=== PATIENT | female | born 1935 | race Caucasian/White ===

== ENCOUNTER 2017-09-03 15:15 | Emergency (ER) | payer MEDICARE ==
[~2017-09-03] VITALS: Ht 157.5 cm; Wt 88.5 kg
[~2017-09-03 15:15] MED LIST: ACETAMINOPHEN; ASPIR 8181 MG PO; ASPIRIN325 PO; BACTRIM DS TAB1 EACH PO; CARDURA XL4 MG PO; CIPROFLOXACIN500 M1 PO; DEMEROL50 MG PO; DITROPAN XL10 M1 PO; EZETIMIBE PO; FLAGYL ER750 MG PO; FLAGYL500 MG PO; FLOMAX PO; GLUCOPHAGE500 MG PO; LISINOPRIL; LISINOPRIL-HCT1 EAC1 PO; LISINOPRIL20 MG PO; NORCO 5-325 TA1 EACH PO; OXYBUTYNIN CHLO10 MG PO; PREDNISONE 10 M10 MG; PRINZIDE 20-251 EACH PO; SKELAXIN 800 M800 M1 PO; TAMSULOSIN HCL0.4 MG PO; ULTRAM 50MG TAB50 MG PO; VITAMIN D250000 UNIT PO; ZESTORETIC 20-1 EAC3 PO; ZETIA10 MG PO
[2017-09-03 17:23] VITALS: BP 178/76
== END 2017-09-03 17:23 | disposition home or self-care (01) ==
LOC: M.ERS 15:15
DX: M54.42 Lumbago with sciatica, left side (principal); M25.552 Pain in left hip; E11.9 Type 2 diabetes mellitus without complications; I10 Essential (primary) hypertension; Z90.711 Acquired absence of uterus with remaining cervical stump; Z88.0 Allergy status to penicillin

== ENCOUNTER → 2017-09-21 | Outpatient (CLI) | payer MEDICARE | LOC: M.RAD 09:22 | DX: M17.12 Unilateral primary osteoarthritis, left knee (principal) ==

== ENCOUNTER 2018-05-18 12:41 | Inpatient (IN) | payer MEDICARE ==
[~2018-05-18] VITALS: Ht 157.5 cm; Wt 76.2 kg
[2018-05-18 12:50] VITALS: BP 220/86
[2018-05-18] MEDS ORDERED: FOR ANXIETY (12:59)
[2018-05-18 13:16] LABS: ABSOLUTE EOSINOPHILS 0.2 thou/uL (0.0-0.7); ABSOLUTE LYMPHOCYTES 1.5 thou/uL (0.8-5.3); ABSOLUTE MONOCYTES 0.4 thou/uL (0.0-1.2); BASOPHILS 0.4 %; EOSINOPHILS 4.2 %; HEMATOCRIT 35.4 % (37.0-47.0); HEMOGLOBIN 11.6 gm/dL (12.0-15.0); LYMPHOCYTES 28.1 %; MCH 29.3 pg (26.0-34.0); MCHC 32.9 g/dL (28.0-37.0); MCV 89.1 fL (80.0-100.0); MONOCYTES 8.3 %; MPV 7.4 fl. (7.2-11.1); NUCLEATED RBCS 0 /100WBC; PLATELET COUNT* 244 thou/uL (150-400); RBC 3.97 mil/uL (4.20-5.00); RDW-CV 15.4 % (10.5-14.5); WBC 5.2 thou/uL (4.0-11.0)
[2018-05-18 13:28] LABS: ANION GAP 8 mmol/L (7-16); BUN 9 mg/dL (7-18); CALCIUM 9.1 mg/dL (8.5-10.1); CHLORIDE 98 mmol/L (98-107); CO2 30 mmol/L (21-32); CREATININE 0.9 mg/dL (0.6-1.3); GLUCOSE 163 mg/dL (70-99); POTASSIUM 3.5 mmol/L (3.5-5.1); SODIUM 136 mmol/L (136-145)
[2018-05-18 13:35] LABS: ALBUMIN 3.8 g/dL (3.4-5.0); ALKALINE PHOSPHATASE 96 U/L (46-116); SGOT 45 U/L (15-37); SGPT 43 U/L (30-65); TOTAL BILIRUBIN 0.6 mg/dL (<0.1-1.0); TOTAL PROTEIN 7.7 g/dL (6.4-8.2); TROPONIN-I LEVEL <0.06 ng/mL (<0.06)
[2018-05-18 14:50] VITALS: BP 181/69
[2018-05-18 15:09] LABS: INFLUENZA A ANTIGEN None Detected (None Detect); INFLUENZA B ANTIGEN None Detected (None Detect)
[2018-05-18 16:33] VITALS: BP 197/92
[2018-05-18] MEDS ORDERED: ZOLOFT25 MG PO (17:27)
[2018-05-18] MEDS ORDERED: NEURONTIN 300300 M1 PO (17:28)
--- NOTE | 2018-05-18 18:48 | NUR ---
PATIENT ARRIVED ON UNIT FROM ER AT 1600. COMPLETED ADMISSION ASSESSMENT AND HISTORY. EDUCATED PATIENT TO ROOM, CALL LIGHT, AND FALL RISKS. PATIENT VERBALIZED UNDERSTANDING AND SIGNED FALL RISK CONTRACT. IV CLEAN, HUNG FLUIDS. PATIENT DENIED PAIN. TOLERATED DIET, NO NAUSEA AND VOMITING. VITAL SIGNS STABLE. BP HIGH, GAVE HYDRALAZINE, BP CAME DOWN. 2L O2. TOLERATED BREATHING TREATMENTS. COMPLETED HOURLY ROUNDING. CALL LIGHT WITHIN REACH. WILL CONTINUE TO MONITOR.
[2018-05-18 20:00] VITALS: BP 196/52
[2018-05-19] VITALS (48 sets, daily range): BP systolic 100–227; BP diastolic 52–122
--- NOTE | 2018-05-19 02:49 | NUR ---
patient arrived to unit at 0220. pt able to walk to bed. blood pressure 190/77. pt extremely anxious and unsure why she has to be in icu. stated "my heart is very healthy its fine" pt given education and explained that we could keep a closer eye on her vital signs and monitor blood pressure. pt denies pain, n/v. tachycardic on monitor. started cardene gtt at initial dose will titrate down. pt refused to have blood pressure taken on upper arm bilaterally. stated pain is intolerable when it presses her arm. pt currently in bed with call light in place. bed to lowest position. no voiced concerns at this time. pt remains tele.
--- NOTE | 2018-05-19 03:11 | NUR ---
Alert and oriented x 4. She was up to the bathroom with stand by assist and had O2 at 2L n/c with long tubing. Her lungs did sound coarse and wheezy, she is recieving breathing treatments every 4 hours while awake. Her blood pressure has been elevated all of this shift. She also was concerned about her home meds. I did explain all of these issues to Dr Mota and he ordered for her to start Nicardipine drip and move to telemetry unit. Orders reported to Ezekiel the security guard supervisor and he said the patient would be moved to room 3 in ICU. Report given to Dannielle TEE. Patient was transfered by bed to ICU.
--- NOTE | 2018-05-19 03:21 | NUR ---
STOPPED JASS GTT @ 0321 BP 136/57 MAP 74
[2018-05-19 05:14] LABS: HEMATOCRIT 32.8 % (37.0-47.0); MCH 30.1 pg (26.0-34.0); MCHC 33.6 g/dL (28.0-37.0); MCV 89.6 fL (80.0-100.0); MPV 7.8 fl. (7.2-11.1); NUCLEATED RBCS 0 /100WBC; PLATELET COUNT* 223 thou/uL (150-400); RBC 3.67 mil/uL (4.20-5.00); RDW-CV 15.4 % (10.5-14.5); WBC 5.8 thou/uL (4.0-11.0)
[2018-05-19 05:29] LABS: CREATININE 1.2 mg/dL (0.6-1.3); POTASSIUM 3.2 mmol/L (3.5-5.1)
--- NOTE | 2018-05-19 05:34 | NUR ---
PATIENT PROGRESSING TOWARDS GOALS. CARDENE GTT BACK ON @ 0440 BP 163/52. TURNED OFF @ 0500. CARDENE GTT BACK ON AT 0530 PT BP 165/65. VERY MINIMAL DOSE 2MG/HR TO KEEP SYSTOLIC <160 PER ORDERS. PATIENT GOT UP TO COMMODE STAND BY ASSIST. TOLERATED WELL. SHE IS VERY EAGER TO WALK AROUND AND OUT OF ICU. REMAINS TACHY ON MONITOR. PT UNABLE TO SLEEP SINCE SHE CAME TO THIS FLOOR. WANTS TO TALK TO HER DAUGHTER. EXPRESSED HEADACHE. TYLENOL WAS GIVEN IN PREVIOUS FLOOR SHE STATED IT DID NOT HELP. SHE STATED SHE NORMALLY TAKES NAPROXEN AT HOME AND TYLENOL NEVER WORKS FOR HER. WILL BE PASSING ON THIS INFORMATION. PT CALL LIGHT IN PLACE. NO VOICED CONCERNS AT THIS.
[2018-05-19 07:12] LABS: ABSOLUTE LYMPHOCYTES 0.6 thou/uL (0.8-5.3); ABSOLUTE MONOCYTES 0.3 thou/uL (0.0-1.2); ABSOLUTE NEUTROPHILS 4.9 thou/uL (1.6-8.1)
[2018-05-19 07:13] LABS: HYPOCHROMASIA 1+; MICROCYTES 1+; PLATELET ESTIMATE ADEQUATE
--- NOTE | 2018-05-19 14:44 | NUR ---
PT CARE ASSUMED AFTER REPORT. ASSESSMENTS COMPLETE. SR/ST ON MONITOR. PT A/O X4. UP STB TO BSC. CALLS FOR ASSISTANCE. DENIES PAIN. PT TO TRANSFER TO ROOM 201. REPORT GIVEN TO NAY ROSADO. MAINTAINING BP IN THE 160'S. PROGRESSING TOWARDS GOALS.
--- NOTE | 2018-05-19 16:11 | NUR ---
PT TRASFERRED FROM ICU TO TELE THIS AFTERNOON. PT IS AOX4 STACHY ON OUTSIDE SALES. ON RA SATURATION ABOVE 95%. STABLE. PROVIDED WITH HEART HEALTHY DIET MENU. UP AD KRYSTYNA. CALL LIGHT AT REACH. SBP 170S. HYDRALIZINE TO BE GIVEN. WILL CONTINUE TO MONITOR PT.
--- NOTE | 2018-05-19 18:32 | NUR ---
PT BP AT 180/80 AT 1700. HYDRALIZNE GIVEN. 157/71 AT 1800. NORVASC GIVEN ORDERED.
[2018-05-20] VITALS: BP 161/69
[2018-05-20 00:09] LABS: URINE BILIRUBIN NEGATIVE (Negative); URINE BLOOD NEGATIVE (Negative); URINE CLARITY CLEAR; URINE COLOR YELLOW; URINE GLUCOSE-RANDOM NEGATIVE (Negative); URINE KETONES NEGATIVE (Negative); URINE LEUKOCYTES-REFLEX NEGATIVE (Negative); URINE NITRITE-REFLEX NEGATIVE (Negative); URINE PROTEIN NEGATIVE (Negative); URINE UROBILINOGEN 0.2 E.U./dl (0.2-1.0)
[2018-05-20 00:13] LABS: AMP/METHAMP Negative (Negative); BARBITURATES Negative (Negative); BENZODIAZEPINES Negative (Negative); COCAINE Negative (Negative); METHADONE Negative (Negative); OPIATES Negative (Negative); PCP Negative (Negative); THC Negative (Negative)
[2018-05-20 04:00] VITALS: BP 148/52
[2018-05-20 04:54] LABS: HEMATOCRIT 33.1 % (37.0-47.0); HEMOGLOBIN 10.8 gm/dL (12.0-15.0); MCH 29.1 pg (26.0-34.0); MCHC 32.5 g/dL (28.0-37.0); MCV 89.6 fL (80.0-100.0); MPV 7.8 fl. (7.2-11.1); RBC 3.7 mil/uL (4.20-5.00); RDW-CV 15.4 % (10.5-14.5); WBC 11.1 thou/uL (4.0-11.0)
--- NOTE | 2018-05-20 04:58 | NUR ---
Pt a/o x 4. RA, O2 2L NC PRN. Elevated BP, hypertensive meds given per order. All VSS at this time. Up to BRM/BSC with standby assist. Pt resting in bed comfortably at this time. No apparent distress noted. Fall precautions maintained. Call light within reach. Will continue to monitor.
[2018-05-20 05:11] LABS: MAGNESIUM 1.8 mg/dL (1.8-2.4); POTASSIUM 3.8 mmol/L (3.5-5.1)
[2018-05-20 08:40] VITALS: BP 130/50
[2018-05-20] MEDS ORDERED: NORVASC10 MG PO (10:52)
[2018-05-20] MEDS ORDERED: LEVAQUIN 750 M750 MG PO (10:52)
[2018-05-20] MEDS ORDERED: BENAZEPRIL HCL40 MG PO (10:52)
[2018-05-20] MEDS ORDERED: CHLORTHALIDONE25 MG PO (10:53)
[2018-05-20] MEDS ORDERED: FLONASE 0.05%50 MCG NASAL (10:53)
[2018-05-20] MEDS ORDERED: SERTRALINE HCL50 MG PO (10:53)
[2018-05-20] MEDS ORDERED: KLOR-CON 1010 MEQ PO (10:55)
--- NOTE | 2018-05-20 11:07 | NUR ---
Pt is A&O. Resides at home alone. Normally active and independent. Pt has a walker and cane that she received post knee surgery, but does not currently use either. Hx of skilled at [facility]. No hx of HH. Discussed order for HH at [facility], Pt in agreement with using [facility] CM faxed dc orders. Family to grain picker and transport.
[2018-05-20 11:10] VITALS: BP 130/50
[2018-05-20 11:13] VITALS: BP 130/50
[2018-05-20 11:50] VITALS: BP 130/50
--- NOTE | 2018-05-20 12:16 | NUR ---
PT DISCHARGED TO HOME VIA PRIVET VEHICLE. TELE AND IV DISCONTINUED.
== END 2018-05-20 12:09 | disposition home health service (06) | DRG 189 ==
LOC: M.ERS 12:41 → M.TBA-ER 14:30 → M.ORTHSURG 15:10 → M.ICU 05-19 02:12 → M.2W 05-19 15:02
PROVIDERS: Physician Assistant; ADMIT Family Medicine
DX: J96.01 Acute respiratory failure with hypoxia (principal); J98.11 Atelectasis; I12.0 Hypertensive chronic kidney disease with stage 5 chronic kidney disease or end stage renal disease; I16.0 Hypertensive urgency; E78.5 Hyperlipidemia, unspecified; F41.9 Anxiety disorder, unspecified; E87.6 Hypokalemia; F32.9 Major depressive disorder, single episode, unspecified; E11.22 Type 2 diabetes mellitus with diabetic chronic kidney disease; N18.3 Chronic kidney disease, stage 3 (moderate); I49.5 Sick sinus syndrome; J01.90 Acute sinusitis, unspecified; Z95.0 Presence of cardiac pacemaker; Z98.41 Cataract extraction status, right eye; Z98.42 Cataract extraction status, left eye; Z90.710 Acquired absence of both cervix and uterus; Z88.0 Allergy status to penicillin; Z79.84 Long term (current) use of oral hypoglycemic drugs; Z79.82 Long term (current) use of aspirin; Z87.891 Personal history of nicotine dependence